=== PATIENT | female | born 1950 | race Caucasian/White ===

== ENCOUNTER 2017-02-27 11:15 | Emergency (ER) | payer MEDICARE, OTHER ==
[2017-02-27 11:30] VITALS: BP 148/59
--- NOTE | 2017-02-27 11:38 | EDM.PDOC ---
ED HPI Trauma - General Chief Complaint: Upper Extremity Injury/Pain Stated Complaint: RIGHT ARM PAIN Time Seen by Provider: 02/27/17 11:38 - History of Present Illness INITIAL COMMENTS - FREE TEXT/NARRATIVE: 67-year-old female presents emergency room with left arm pain. This pain has been present for about a week and a half possibly as long as 2 weeks. Patient cannot recall any specific injuries. She takes ibuprofen a couple times a week, she works part-time and on her workdays she uses it this may help with her arm pain. The pain is described as starting in her forearm and radiating up the inner aspect of her upper arm about fci up. It is not seem to be worsened by elbow activity or rolling her wrist. Patient does not have a history of heart problems and has not any associated chest pain with this Allergies/ADRs: Allergies bacitracin [From Neosporin ([id number])] Allergy (Verified 02/27/17 11:31) Hives neomycin [From Neosporin ([id number])] Allergy (Verified 02/27/17 11:31) Hives nickel Allergy (Verified 02/27/17 11:31) Rash Penicillins Allergy (Verified 02/27/17 11:31) Rash polymyxin B [From Neosporin ([id number])] Allergy (Verified 02/27/17 11:31) Hives Home Medications: Ambulatory Orders Aspirin 81 mg PO DAILY 02/27/17 [Confirmed 02/27/17] Escitalopram [Lexapro] 20 mg PO DAILY 02/27/17 [Confirmed 02/27/17] FA/Lycopene/Lut/MV,Ca,Iron,Min [Centrum] 1 tab PO DAILY 02/27/17 [Confirmed 06/08] Gemfibrozil [Gemfibrozil] 1 tab PO BID 02/27/17 [Confirmed 02/27/17] Ibuprofen 400 mg PO ASDIRECTED 02/27/17 [Confirmed 02/27/17] Metoprolol Succinate 25 mg PO DAILY 02/27/17 [Confirmed 02/27/17] Review of Systems - Review of Systems Review Of Systems: See Below Constitutional: Reports: no symptoms Respiratory: Reports: No Symptoms Cardiovascular: Reports: no symptoms GI/Abdominal: Reports: No symptoms Neurological: Reports: No Symptoms Trauma Exam - Physical Exam Exam: See Below Exam Limited By: No limitations General Appearance: Reports: alert, no apparent distress Head: Reports: atraumatic, normocephalic Neck: Reports: non-tender, full range of motion, normal alignment, normal inspection, spinous processes tender, other (she has some nonspecific muscle tightness on the left) Respiratory Exam: Reports: no respiratory distress, lungs clear, normal breath sounds Cardiovascular: Reports: regular rate, rhythm, no edema, no murmur Extremities: Reports: other (Demisch of left upper extremity shows good range of motion of the shoulder she has no discomfort over the deltoid bandage area she has some palpable discomfort in the lower ulnar aspect of the upper arm extending down towards her hand. No palpable discomfort over the ulnar nerve were courses over the elbow no tenderness over the lateral or medial epicondyles. Tinel sign is negative as is Phalen's and reverse Phalen's.) Course - Vital Signs Last Recorded V/S: Last Vital Signs Temp 36.5 C 02/27/17 11:22 Pulse 64 02/27/17 11:22 Resp 18 02/27/17 11:22 BP 148/59 H 02/27/17 11:22 Pulse Ox 96 02/27/17 11:22 - Orders/Labs/Meds Orders: Active Orders 24 hr Category Date Time Status EKG Documentation Completion [RC] STAT Care 02/27/17 12:41 Active - Re-Assessments/Exams Free Text/Narrative Re-Assessment/Exam: 02/27/17 because of this pain can be muscle to be other things as well but unlikely be cardiac her EKG shows no acute changes or any chronic suspicious changes. Further considerations need to be cervical radicular painand if continued workup for this is unrevealing perhaps a stress test may be of benefit. Discussed this with the patient offered to do lab work at this point, she declined this. However, is willing to followup in the clinic. We will try her on ibuprofen 400 mg twice a day she usually uses 400 mg before she goes to work to help with her knee pain in seems to tolerate this. Departure - Departure Time of Disposition: 13:46 Disposition: Home, Self-Care 01 Clinical Impression: Left arm pain Referrals: Madonna Covington NP [Primary Care Provider] - Forms: ED Department Discharge Additional Instructions: Return to the emergency room if any questions or problems. Increase your ibuprofen to 400 mg twice daily. Take this with meals. Followup with your regular physician in several days. If the cause this discomfort cannot be fully identified consider a heart stress test. Causes of this pain most likely are muscle strains it is possible that he could be pain from your neck. But I think this is less likely. Your EKG is assuring, however, a heart stress test in the near future may be very beneficial. - My Orders Last 24 Hours: My Active Orders 02/27/17 12:41 EKG Documentation Completion [RC] STAT - Assessment/Plan Last 24 Hours: My Active Orders 02/27/17 12:41 EKG Documentation Completion [RC] STAT
== END 2017-02-27 13:55 | disposition home or self-care (01) ==
LOC: JD.ED 11:15
DX: M79.602 Pain in left arm (principal); Z79.899 Other long term (current) drug therapy; Z79.82 Long term (current) use of aspirin; Z88.0 Allergy status to penicillin; Z88.1 Allergy status to other antibiotic agents
CPT/HCPCS: 93005; 99283; 99283-25

== ENCOUNTER 2018-01-20 17:12 | Emergency (ER) | payer MEDICARE, OTHER ==
[2018-01-20 17:28] VITALS: BP 145/56
--- NOTE | 2018-01-20 18:49 | EDM.PDOC ---
ED HPI GENERAL MEDICAL PROBLEM - General Chief Complaint: Skin Complaint Stated Complaint: SKIN COMPLAINT/BOTH HANDS Time Seen by Provider: 01/20/18 18:24 Source of Information: Reports: Patient History Limitations: Reports: No Limitations - History of Present Illness INITIAL COMMENTS - FREE TEXT/NARRATIVE: Patient is a 67-year-old female with a history of eczema who presents ED complaining of worsening of rash to the palms of her hands, fingers, and wrist. States she's been applying Benadryl lotion, hydrocortisone 1% lotion, and bacitracin to the affected areas. Symptoms have become mildly worse with application of bacitracin. She does have a history of allergies to Neosporin and questions if the worsening of the symptoms is not related to the bacitracin. She states the rash is itchy and she has been itching it quite excessively today. She has a history of similar symptoms as such for the past few months. She has a history of eczema and notes other parts of her body have at times developed similar rash. She was on prednisone for 5 days approx. 2 weeks ago with almost complete resolution of the rash. She does admit to washing her hands without any rubber gloves. She uses scented antibacterial foam soaps which appear to be worsening symptoms. She has at times also use scented lotions. She has taken Zyrtec on a daily basis. There's been no increased redness, purulent drainage, increased swelling, or redness streaking up her arms. Bilateral Hand Pain Score (Numeric/FACES): 6 - Related Data Allergies Allergy/AdvReac Type Severity Reaction Status Date / Time bacitracin Allergy Hives Verified 01/20/18 18:50 [From Neosporin ([id number])] neomycin Allergy Hives Verified 01/20/18 18:50 [From Neosporin ([id number])] nickel Allergy Rash Verified 01/20/18 18:50 Penicillins Allergy Rash Verified 01/20/18 18:50 polymyxin B Allergy Hives Verified 01/20/18 18:50 [From Neosporin ([id number])] Home Meds: Home Meds Aspirin 81 mg PO DAILY 02/27/17 [History] Escitalopram [Lexapro] 20 mg PO DAILY 02/27/17 [History] FA/Lycopene/Lut/MV,Ca,Iron,Min [Centrum] 1 tab PO DAILY 02/27/17 [History] Ibuprofen 400 mg PO ASDIRECTED 02/27/17 [History] Metoprolol Succinate 25 mg PO DAILY 02/27/17 [History] Cyanocobalamin (Vitamin B12) [Vitamin B12] 1,000 mcg PO DAILY 01/20/18 [History] Past Medical History HEENT History: Reports: Impaired Vision Cardiovascular History: Reports: High Cholesterol, Hypertension Gastrointestinal History: Reports: Other (See Below) Other Gastrointestinal History: increased gas Genitourinary History: Reports: UTI, Recurrent Musculoskeletal History: Reports: Arthritis, Other (See Below) Other Musculoskeletal History: knee pain Psychiatric History: Reports: Anxiety, Depression Endocrine/Metabolic History: Reports: Hypothyroidism Other Endocrine/Metabolic History: not on synthroid anymore Hematologic History: Reports: Other (See Below) Other Hematologic History: is on baby aspirin Dermatologic History: Reports: Eczema - Past Surgical History HEENT Surgical History: Reports: Tonsillectomy GI Surgical History: Reports: Appendectomy, Colonoscopy Female Surgical History: Reports: Hysterectomy Social & Family History - Family History Family Medical History: Noncontributory - Tobacco Use Smoking Status *Q: Former Smoker Used Tobacco, but Quit: Yes Month/Year Tobacco Last Used: 1991 - Caffeine Use Caffeine Use: Reports: Coffee, Soda - Recreational Drug Use Recreational Drug Use: No ED ROS GENERAL - Review of Systems Review Of Systems: ROS reveals no pertinent complaints other than HPI. ED EXAM, SKIN/RASH Exam: See Below Exam Limited By: No Limitations General Appearance: Alert, WD/WN, No Apparent Distress Ears: Hearing Grossly Normal Nose: Normal Inspection Throat/Mouth: Normal Voice, No Airway Compromise Neck: Normal Inspection, Supple Respiratory/Chest: No Respiratory Distress, No Accessory Muscle Use Cardiovascular: Normal Peripheral Pulses, Regular Rate, Rhythm Peripheral Pulses: 4+: Radial (L), Radial (R) Psychiatric: Normal Affect, Normal Mood Skin: Warm Location, Skin: Palms Characteristics: Patchy, Erythematous, Other (Patient has atopic dermatitis of the left and right palms, and wrists, and few fingers on the palmar side. Patient has some cracking noted. Dry skin present with excoriations noted. Clear drainage noted. No increased swelling. Appears to be atopic dermatitis. ) Comments: Patient has atopic dermatitis of the left and right palms, and wrists, and few fingers on the palmar side. Patient has some cracking noted. Dry skin present with excoriations noted. Clear drainage noted. No increased swelling. Appears to be atopic dermatitis. Course - Vital Signs Last Recorded V/S: Last Vital Signs Temp 97.2 F 01/20/18 17:25 Pulse 64 01/20/18 17:25 Resp 20 01/20/18 17:25 BP 145/56 H 01/20/18 17:25 Pulse Ox 97 01/20/18 17:25 - Re-Assessments/Exams Free Text/Narrative Re-Assessment/Exam: Patient has atopic dermatitis that was relieved with taking oral prednisone. She has been applying Benadryl lotion, hydrocortisone 1% lotion, and bacitracin to the affected areas with minimal relief. Patient started itching the affected extremities extensively over the past few days. Of note approximately 2 weeks ago patient was placed on oral prednisone and almost completely resolve the rash. Departure - Departure Time of Disposition: 18:57 Disposition: Home, Self-Care 01 Condition: Good Clinical Impression: Atopic dermatitis Qualifiers: Atopic dermatitis type: unspecified Qualified Code(s): L20.9 - Atopic dermatitis, unspecified - Discharge Information Instructions: Eczema, Hand Dermatitis Referrals: Madonna Covington NP [Primary Care Provider] - Forms: ED Department Discharge Additional Instructions: Apply hydrocortisone ointment 1% to the affected areas twice a day with heavy coat of aquaphor. Do not scratch the rash. Keep area clean and dry. Do not utilize any antibacterial foam soaps. Refrain from using any scented soaps. Refrain from using any lotions. Follow-up with your primary care provider this coming week for reevaluation. Return to the ED if you develop any new or worsening symptoms.
== END 2018-01-20 19:10 | disposition home or self-care (01) ==
LOC: JD.ED 17:12
DX: L20.9 Atopic dermatitis, unspecified (principal); E78.00 Pure hypercholesterolemia, unspecified; I10 Essential (primary) hypertension; F41.9 Anxiety disorder, unspecified; F32.9 Major depressive disorder, single episode, unspecified; E03.9 Hypothyroidism, unspecified; Z90.49 Acquired absence of other specified parts of digestive tract; Z88.1 Allergy status to other antibiotic agents; Z88.8 Allergy status to other drugs, medicaments and biological substances; Z88.0 Allergy status to penicillin; Z87.440 Personal history of urinary (tract) infections; Z79.82 Long term (current) use of aspirin; Z79.899 Other long term (current) drug therapy; Z87.891 Personal history of nicotine dependence
CPT/HCPCS: 99282; 99283

== ENCOUNTER 2018-01-27 17:19 | Emergency (ER) | payer MEDICARE, OTHER ==
[2018-01-27 17:32] VITALS: BP 148/64
[2018-01-27] MEDS ORDERED: Doxycycline 100 MG Cap PO ONE (17:51)
[2018-01-27] MEDS ORDERED: predniSONE 10 MG Tab PO ONE (17:51)
--- NOTE | 2018-01-27 17:55 | EDM.PDOC ---
ED HPI GENERAL MEDICAL PROBLEM - General Chief Complaint: Skin Complaint Stated Complaint: poss wrist infection Time Seen by Provider: 01/27/18 17:29 Source of Information: Reports: Patient History Limitations: Reports: No Limitations - History of Present Illness INITIAL COMMENTS - FREE TEXT/NARRATIVE: The patient is a 68-year-old female with a chief complaint of right wrist pain and redness. She is currently under treatment for severe bilateral hand dermatitis. Was seen in this emergency department about a week ago and at that time advised to use hydrocortisone and Aquaphor. Since then she states that the dermatitis has improved significantly. She does still have a lot of and irritation and cracking. Meanwhile, she has an area of irritation on her right wrist that is more red, warm, and tender today. She was worried because the area of redness appeared to be spreading. No fever. Moderate pain. No additional complaint. No discharge from the area. Right Hand Pain Score (Numeric/FACES): 4 - Related Data Allergies Allergy/AdvReac Type Severity Reaction Status Date / Time bacitracin Allergy Hives Verified 01/27/18 17:33 [From Neosporin ([id number])] neomycin Allergy Hives Verified 01/27/18 17:33 [From Neosporin ([id number])] nickel Allergy Rash Verified 01/27/18 17:33 Penicillins Allergy Rash Verified 01/27/18 17:33 polymyxin B Allergy Hives Verified 01/27/18 17:33 [From Neosporin ([id number])] Home Meds: Home Meds Aspirin 81 mg PO DAILY 02/27/17 [History] Escitalopram [Lexapro] 20 mg PO DAILY 02/27/17 [History] FA/Lycopene/Lut/MV,Ca,Iron,Min [Centrum] 1 tab PO DAILY 02/27/17 [History] Ibuprofen 400 mg PO ASDIRECTED 02/27/17 [History] Metoprolol Succinate 25 mg PO DAILY 02/27/17 [History] Cyanocobalamin (Vitamin B12) [Vitamin B12] 1,000 mcg PO DAILY 01/20/18 [History] Doxycycline [Vibramycin] 100 mg PO BID #20 tab 01/27/18 [Rx] Prednisone [IJD: predniSONE] 40 mg PO DAILY 4 Days #8 tab 01/27/18 [Rx] Past Medical History HEENT History: Reports: Impaired Vision Cardiovascular History: Reports: High Cholesterol, Hypertension Gastrointestinal History: Reports: Other (See Below) Other Gastrointestinal History: increased gas Genitourinary History: Reports: UTI, Recurrent Musculoskeletal History: Reports: Arthritis, Other (See Below) Other Musculoskeletal History: knee pain Psychiatric History: Reports: Anxiety, Depression Endocrine/Metabolic History: Reports: Hypothyroidism Other Endocrine/Metabolic History: not on synthroid anymore Hematologic History: Reports: Other (See Below) Other Hematologic History: is on baby aspirin Dermatologic History: Reports: Eczema - Past Surgical History HEENT Surgical History: Reports: Tonsillectomy GI Surgical History: Reports: Appendectomy, Colonoscopy Female Surgical History: Reports: Hysterectomy Social & Family History - Family History Family Medical History: Noncontributory - Tobacco Use Smoking Status *Q: Former Smoker Used Tobacco, but Quit: Yes Month/Year Tobacco Last Used: 1991 - Caffeine Use Caffeine Use: Reports: Coffee, Soda - Recreational Drug Use Recreational Drug Use: No ED ROS GENERAL - Review of Systems Review Of Systems: See Below Constitutional: Denies: Fever HEENT: Reports: No Symptoms Respiratory: Reports: No Symptoms Cardiovascular: Reports: No Symptoms GI/Abdominal: Reports: No Symptoms Musculoskeletal: Reports: Arm Pain, Hand Pain Skin: Reports: Rash, Erythema ED EXAM, SKIN/RASH Exam: See Below Exam Limited By: No Limitations General Appearance: Alert, WD/WN, No Apparent Distress Eye Exam: Bilateral Eye: Normal Inspection Ears: Normal External Exam Nose: Normal Inspection Throat/Mouth: Normal Inspection, Normal Voice Head: Atraumatic, Normocephalic Neck: Normal Inspection Respiratory/Chest: No Respiratory Distress Extremities: Other (Bilateral hands are irritated and cracked in areas, both palmar and dorsal surfaces. Irritation and rash extends to the bilateral wrists. Right wrist palmar surface has a confluent area of erythema, warmth, tenderness. No fluctuance. No wound. There is slight streaking proximally.) Neurological: Alert, Oriented, Normal Cognition, No Motor/Sensory Deficits Psychiatric: Normal Affect, Normal Mood Course - Vital Signs Last Recorded V/S: Last Vital Signs Temp 37.4 C 01/27/18 17:29 Pulse 68 01/27/18 17:29 Resp 16 01/27/18 17:29 BP 148/64 H 01/27/18 17:29 Pulse Ox 97 01/27/18 17:29 - Orders/Labs/Meds Meds: Medications Discontinued Medications Generic Name Dose Route Start Last Admin Trade Name Casi PRN Reason Stop Dose Admin Doxycycline Hyclate 100 mg 01/27/18 17:51 01/27/18 18:05 Vibramycin PO 01/27/18 17:52 100 mg ONETIME ONE Administration Prednisone 60 mg 01/27/18 17:51 01/27/18 18:05 Prednisone PO 01/27/18 17:52 60 mg ONETIME ONE Administration - Re-Assessments/Exams Free Text/Narrative Re-Assessment/Exam: 01/27/18 18:20 Exam is consistent with moderate bilateral hand dermatitis with superimposed cellulitis of the right wrist. The area of cellulitis is mild. We'll treat with doxycycline. Discussed strict return precautions. Departure - Departure Time of Disposition: 18:20 Disposition: Home, Self-Care 01 Clinical Impression: Dermatitis Cellulitis Qualifiers: Site of cellulitis: extremity Site of cellulitis of extremity: upper extremity Laterality: right Qualified Code(s): L03.113 - Cellulitis of right upper limb - Discharge Information Prescriptions: Doxycycline [Vibramycin] 100 mg PO BID #20 tab Prednisone [IJD: predniSONE] 40 mg PO DAILY 4 Days #8 tab Instructions: Cellulitis, Adult, Contact Dermatitis Referrals: Madonna Covington NP [Primary Care Provider] - Forms: ED Department Discharge
== END 2018-01-27 18:33 | disposition home or self-care (01) ==
LOC: JD.ED 17:19
DX: L03.113 Cellulitis of right upper limb (principal); L30.9 Dermatitis, unspecified; E78.00 Pure hypercholesterolemia, unspecified; I10 Essential (primary) hypertension; Z88.8 Allergy status to other drugs, medicaments and biological substances; Z88.0 Allergy status to penicillin; Z79.82 Long term (current) use of aspirin; Z79.899 Other long term (current) drug therapy; Z87.891 Personal history of nicotine dependence
CPT/HCPCS: 99283; A9270

== ENCOUNTER 2018-11-26 12:30 | Emergency (ER) | payer MEDICARE, OTHER ==
[2018-11-26 12:49] VITALS: BP 159/77
[2018-11-26] MEDS ORDERED: Diphtheria,Pertussis(Acell),Tetanus Vaccine 0.5 ML Syringe IM ONE (13:13)
[2018-11-26] MEDS ORDERED: Lidocaine 1% with EPINEPHrine 1:100,000 20 ML MDV INJECT ONE (13:41)
--- NOTE | 2018-11-26 14:07 | EDM.PDOC ---
ED HPI GENERAL MEDICAL PROBLEM - General Chief Complaint: Head Injury Stated Complaint: HEAD INJURY Time Seen by Provider: 11/26/18 13:02 Source of Information: Reports: Patient History Limitations: Reports: No Limitations - History of Present Illness INITIAL COMMENTS - FREE TEXT/NARRATIVE: Patient is a 68-year-old female who presents ED complaining of mild headache to the posterior aspect of her head with a 8 cm lacerationthat occurred this morning. Patient states she was stepping onto a countertop in the bathroom and was reaching up to grab the cabinet to pull herself up to check for a mouse. With doing so the cabinet edge gaveway and she fell backwards hitting her head on the corner of the door. There was no loss of conscious. She denies any neck or back pain. Bleeding was controlled with direct pressure. She was seen at the clinic and instructed to come to the ED for further evaluation. She is on a baby aspirin daily. No anticoagulants. She has full range of motion of her neck. Denies any vision changes, nausea vomiting, chest pain, shortness of breath, abdominal pain, numbness or tingling to extremities, or any additional complaints. Patient ambulated into the emergency room on her own accord. Occipital Head Pain Score (Numeric/FACES): 4 - Related Data Allergies Allergy/AdvReac Type Severity Reaction Status Date / Time bacitracin Allergy Hives Verified 11/26/18 12:49 [From Neosporin ([id number])] gold Au 198 Allergy Other Verified 11/26/18 12:49 neomycin Allergy Hives Verified 11/26/18 12:49 [From Neosporin ([id number])] nickel Allergy Rash Verified 11/26/18 12:49 Penicillins Allergy Rash Verified 11/26/18 12:49 polymyxin B Allergy Hives Verified 11/26/18 12:49 [From Neosporin ([id number])] rubber Allergy Other Uncoded 11/26/18 12:49 Home Meds: Home Meds Aspirin 81 mg PO DAILY 02/27/17 [History] Escitalopram [Lexapro] 20 mg PO DAILY 02/27/17 [History] FA/Lycopene/Lut/MV,Ca,Iron,Min [Centrum] 1 tab PO DAILY 02/27/17 [History] Ibuprofen 400 mg PO ASDIRECTED 02/27/17 [History] Metoprolol Succinate 25 mg PO DAILY 02/27/17 [History] Cyanocobalamin (Vitamin B12) [Vitamin B12] 1,000 mcg PO DAILY 01/20/18 [History] Past Medical History HEENT History: Reports: Impaired Vision Cardiovascular History: Reports: High Cholesterol, Hypertension Gastrointestinal History: Reports: Other (See Below) Other Gastrointestinal History: increased gas Genitourinary History: Reports: UTI, Recurrent Musculoskeletal History: Reports: Arthritis, Other (See Below) Other Musculoskeletal History: knee pain Psychiatric History: Reports: Anxiety, Depression Endocrine/Metabolic History: Reports: Hypothyroidism Other Endocrine/Metabolic History: not on synthroid anymore Hematologic History: Reports: Other (See Below) Other Hematologic History: is on baby aspirin Dermatologic History: Reports: Eczema - Past Surgical History HEENT Surgical History: Reports: Tonsillectomy GI Surgical History: Reports: Appendectomy, Colonoscopy Female Surgical History: Reports: Hysterectomy Social & Family History - Family History Family Medical History: Noncontributory - Caffeine Use Caffeine Use: Reports: Coffee, Soda ED ROS GENERAL - Review of Systems Review Of Systems: ROS reveals no pertinent complaints other than HPI. ED EXAM, HEAD INJURY - Physical Exam Exam: See Below Exam Limited By: No Limitations General Appearance: Alert, WD/WN, No Apparent Distress Head: Scalp Lacerations (8 cm to the posterior aspect of the head. Dry blood present. No foreign debris noted. No bony abnormalities noted with palpation. No significant hematoma present.) Nexus Criteria: No: Posterior, Midline Cervical Tenderness, Evidence of Intoxication, Altered Level of Consciousness, Focal Neurological Deficit, Painful Distraction Injuries Eyes: Bilateral Eye: EOMI, Nystagmus (none noted), PERRL Ears: Hearing Grossly Normal Nose: Normal Inspection Throat/Mouth: Normal Voice, No Airway Compromise Neck: Non-Tender, Full Range of Motion, Normal Alignment, Normal Inspection Respiratory: No Respiratory Distress, Lungs Clear, Normal Breath Sounds, No Accessory Muscle Use, Chest Non-Tender Cardiovascular: Normal Peripheral Pulses, Regular Rate, Rhythm GI/Abdominal Exam: Normal Bowel Sounds, Soft, Non-Tender, No Organomegaly, No Distention Back Exam: Normal Inspection, Full Range of Motion. No: Paraspinal Tenderness, Vertebral Tenderness Extremities: Normal Inspection, Non-Tender Neurologic: health therapist II-XII nml As Tested, No Motor/Sensory Deficits, Normal Mood/ Affect, Oriented x 3. No: Abnormal Gait Skin: Normal Color, Warm/Dry ED LACERATION/WOUND & SULLY PROC - Laceration/Wound Repair Posterior Head Lac/wound length in cm: 8 Appearance: Subcutaneous, Clean Distal NVT: Neuro & Vascular Intact, No Tendon Injury Anesthetic Type: Local Local Anesthesia - Lidocaine (Xylocaine): 1% with EPI Local Anesthetic Volume: Other (8) Skin Prep: Chlorhexidine (Hibiciens), Saline, Sterile Drape Exploration/Debridement/Repair: Wound Explored, In a Bloodless Field, Explored to Base, No Foreign Material Found Closed with: [place] # of Sutures: 20 Course - Vital Signs Last Recorded V/S: Last Vital Signs Temp 97.0 F 11/26/18 12:43 Pulse 55 L 11/26/18 12:43 Resp 18 11/26/18 12:43 BP 159/77 H 11/26/18 12:43 Pulse Ox 95 11/26/18 12:43 - Orders/Labs/Meds Orders: Active Orders 24 hr Category Date Time Status Vaccines to be Administered [RC] PER UNIT ROUTINE Care 11/26/18 13:13 Active Head wo Cont [CT] Stat Exams 11/26/18 13:13 Taken Meds: Medications Discontinued Medications Generic Name Dose Route Start Last Admin Trade Name Freq PRN Reason Stop Dose Admin Diphtheria/Tetanus/Acell Pertussis 0.5 ml 11/26/18 13:13 11/26/18 13:33 Adacel IM 11/26/18 13:14 0.5 ml .ONCE ONE Administration Lidocaine/Epinephrine 20 ml 11/26/18 13:41 11/26/18 14:16 Xylocaine 1% With Epinephrine 1:100,000 INJECT 11/26/18 13:42 20 ml ONETIME ONE Administration - Re-Assessments/Exams Free Text/Narrative Re-Assessment/Exam: CT of the head without contrast will be obtained. I have ordered 1% epi with lidocaine. Patient is allergic to multiple times to metals. Stainless steel is not one of them.Thus we'll go ahead and staple the laceration once results of the head CT are back. CT of the head impression: No hemorrhage, mass effect, or midline shift. No evidence of acute intracranial abnormality. Laceration closed with no complications. Return precautions discussed with the patient.Patient had no further questions or concerns and agreed with plan. Discharge instructions as documented. Departure - Departure Time of Disposition: 14:08 Disposition: Home, Self-Care 01 Condition: Good Clinical Impression: Contusion of head Qualifiers: Encounter type: initial encounter Contusion of head detail: scalp Qualified Code(s): S00.03XA - Contusion of scalp, initial encounter Laceration of scalp Qualifiers: Encounter type: initial encounter Qualified Code(s): S01.01XA - Laceration without foreign body of scalp, initial encounter - Discharge Information Instructions: Concussion, Adult, [id number], Laceration Care, Adult, Contusion, [id number], Head Injury, Adult, [id number], Stitches, Meron, or Adhesive Wound Closure, [id number] Referrals: PCP,Unknown [Primary Care Provider] - Forms: ED Department Discharge Additional Instructions: Cleanse site twice daily, PAT dry, reapply bacitracin ointment. Keep area clean and dry. Do not soak wound. Followup with a provider at [facility] in 10 days for staple removal free of charge. Return back to the ED for increased redness, increased swelling, or purulent drainage. Please read the educational material on concussions and postconcussion syndrome. I do not believe you have a concussion but due believe you should be aware of potential symptoms to look out for. - My Orders Last 24 Hours: My Active Orders 11/26/18 13:13 Vaccines to be Administered [RC] PER UNIT ROUTINE Head wo Cont [CT] Stat - Assessment/Plan Last 24 Hours: My Active Orders 11/26/18 13:13 Vaccines to be Administered [RC] PER UNIT ROUTINE Head wo Cont [CT] Stat
--- NOTE | 2018-11-27 08:46 | CT ---
Head CT Technique: Multiple axial sections through the brain were obtained. Intravenous contrast was not utilized. Comparison: No prior intracranial imaging is available. Findings: Ventricles along with basal cisterns and sulci over the convexities are mildly prominent. Minimal diminished density is noted within the periventricular white matter compatible with small vessel ischemic demyelination change. No other abnormal parenchymal densities are seen. No evidence of intracranial hemorrhage. No midline shift or mass effect is seen. Soft tissue swelling and soft tissue injury seen within the posterior scalp. Bone window settings were reviewed which show no acute calvarial abnormality. Visualized sinuses are clear. Impression: 1. Mild senescent change. 2. Scalp findings posteriorly as noted above. 3. No acute intracranial abnormality is identified. Diagnostic code #2 I agree with preliminary report from [facility], finalized on 11/26/18, 2:58 PM Central Time
== END 2018-11-26 15:05 | disposition home or self-care (01) ==
LOC: JD.ED 12:30
DX: S01.01XA Laceration without foreign body of scalp, initial encounter (principal); Z88.8 Allergy status to other drugs, medicaments and biological substances; Z79.82 Long term (current) use of aspirin; Z79.899 Other long term (current) drug therapy; Z91.048 Other nonmedicinal substance allergy status; F41.9 Anxiety disorder, unspecified; F32.9 Major depressive disorder, single episode, unspecified; W01.10XA Fall on same level from slipping, tripping and stumbling with subsequent striking against unspecified object, initial encounter; Z23 Encounter for immunization
CPT/HCPCS: 12004; 70450; 70450-26; 90471; 90700; 99283; 99283-25

== ENCOUNTER 2020-09-07 09:30 | Day surgery (SDC) | payer MEDICARE, OTHER ==
[~2020-09-07 09:30] MED LIST: Acetaminophen 325 MG Tab PO SCH; Lactated Ringers 1,000 ML IV SCH; Lidocaine 1%/Sod Bicarbonate in NS 8.4% 1 ML Syringe IDERM PRN; Pregabalin 25 MG Cap PO SCH; Sodium Chloride 0.9% 10 ML Syringe FLUSH PRN; oxyCODONE ER 10 MG TAB.ER PO SCH
[2020-09-07] MEDS ORDERED: Propofol 200 MG/20 ML SDV ONE (10:04)
[2020-09-07] MEDS ORDERED: Ketamine 500 mg/10 ML MDV ONE (10:05)
[2020-09-07] MEDS ORDERED: ceFAZolin 1 GM Vial ONE (10:05)
[2020-09-07] MEDS ORDERED: Midazolam 1 MG/ML 2 ML SDV ONE (10:05)
[2020-09-07] MEDS ORDERED: Ketorolac 15 MG/ML SDV ONE (10:09)
[2020-09-07] MEDS ORDERED: Ondansetron 4 MG/2 ML SDV ONE (10:09)
[2020-09-07] MEDS ORDERED: Dexamethasone 4 MG/ML 5 ML MDV ONE (10:09)
[2020-09-07] MEDS ORDERED: Ropivacaine 0.5% 5 MG/ML 30 ML SDV ONE (10:36)
[2020-09-07] MEDS ORDERED: EPINEPHrine 1 MG/ML SDV ONE (10:36)
[2020-09-07] MEDS ORDERED: ePHEDrine 50 MG/ML SDV ONE (11:03)
[2020-09-07] MEDS ORDERED: Lactated Ringers 1,000 ML ONE (11:19)
[2020-09-07] MEDS: Bupivacaine 0.25% 10 ML SDV ONE ×2 (11:51→11:54)
[2020-09-07] MEDS: Vancomycin 1 GM SDV ONE ×2 (11:51→12:07)
--- NOTE | 2020-09-07 11:51 | PCM.PREANE ---
Preanesthetic Assessment - Procedure Proposed Procedure: Right Total Knee Arthroplasty - Anesthesia/Transfusion/Family Hx Anesthesia History: Prior Anesthesia Without Reaction Family History of Anesthesia Reaction: No - Review of Systems General: No Symptoms Pulmonary: Cough (Dry, Former smoker, always had this cought. ), Other (Sleep Apnea with CPAP use. ) Cardiovascular: No Symptoms Gastrointestinal: No Symptoms Neurological: Pre-Existing Deficit (Neuropathy left hand and left foot. ) Other: Reports: None - Physical Assessment NPO Status Date: 09/06/20 NPO Status Time: 23:30 Vital Signs: Last Vital Signs Temp 36.4 C 09/07/20 09:35 Pulse 60 09/07/20 09:35 Resp 16 09/07/20 09:35 BP 128/48 L 09/07/20 09:35 Pulse Ox 97 09/07/20 09:35 Height: 1.65 m Weight: 97.522 kg ASA Class: 3 Mental Status: Alert & Oriented x3 Airway Class: Mallampati = 2 Dentition: Reports: Dentures (upper), Partial (lower) Thyro-Mental Finger Breadths: 2 Mouth Opening Finger Breadths: 3 ROM/Head Extension: Full Lungs: Clear to Auscultation, Normal Respiratory Effort Cardiovascular: Regular Rate, Regular Rhythm - Lab Values: Laboratory Last Values MRSA (PCR) Negative 08/25/20 13:00 - Allergies Allergies/Adverse Reactions: Allergies Allergy/AdvReac Type Severity Reaction Status Date / Time bacitracin Allergy Hives Verified 09/04/20 09:55 [From Neosporin ([id number])] gold Au 198 Allergy Other Verified 09/04/20 09:55 neomycin Allergy Hives Verified 09/04/20 09:55 [From Neosporin ([id number])] nickel Allergy Rash Verified 09/04/20 09:55 Penicillins Allergy Rash Verified 09/07/20 11:22 polymyxin B Allergy Hives Verified 09/04/20 09:55 [From Neosporin ([id number])] rubber Allergy Other Uncoded 09/04/20 09:55 - Anesthesia Plan Pre-Op Medication Ordered: Anxiolytic Beta Kingsley: Metoprolol Med Last Dose Date: 09/07/20 Med Last Dose Time: 07:00 - Acknowledgements Anesthesia Type Planned: Spinal, Regional Block (Post op adductor canal block for post op pain control. ) Pt an Appropriate Candidate for the Planned Anesthesia: Yes Alternatives and Risks of Anesthesia Discussed w Pt/Guardian: Yes Pt/Guardian Understands and Agrees with Anesthesia Plan: Yes PreAnesthesia Questionnaire HEENT History: Reports: Impaired Vision Other HEENT History: Dentures Cardiovascular History: Reports: High Cholesterol, Hypertension Other Cardiovascular History: Patient states she has episodes of "heart racing with skipping beats" -- Last episode unknown. 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: Other (See Below) Other OB/BYN History: tubal, D&C, hysterectomy Musculoskeletal History: Reports: Arthritis, Other (See Below) Other Musculoskeletal History: left hand numbness, left foot numbness Psychiatric History: Reports: Anxiety, Depression Endocrine/Metabolic History: Reports: Obesity/BMI 30+, Vitamin D Deficiency Other Endocrine/Metabolic History: not on synthroid anymore Hematologic History: Reports: Other (See Below) Other Hematologic History: is on baby aspirin Dermatologic History: Reports: Eczema - Infectious Disease History Infectious Disease History: Reports: Chicken Pox, Measles - Past Surgical History Head Surgeries/Procedures: Reports: None Cardiovascular Surgical History: Reports: None Respiratory Surgical History: Reports: None GI Surgical History: Reports: Colonoscopy Female Surgical History: Reports: None Endocrine Surgical History: Reports: None Neurological Surgical History: Reports: None Musculoskeletal Surgical History: Other Musculoskeletal Surgeries/Procedures:: bunion excision bilateral feet, right hand surgery Dermatological Surgical History: Reports: None - SUBSTANCE USE Tobacco Use Status *Q: Former Tobacco User Recreational Drug Use History: No - HOME MEDS Home Medications: Home Meds Escitalopram [Lexapro] 20 mg PO DAILY 02/27/17 [History] FA/Lycopene/Lut/MV,Ca,Iron,Min [Centrum] 1 tab PO DAILY 02/27/17 [History] Metoprolol Succinate 25 mg PO DAILY 02/27/17 [History] Cyanocobalamin (Vitamin B12) [Vitamin B12] 1,000 mcg PO DAILY 01/20/18 [History] Cholecalciferol (Vitamin D3) [Vitamin D3] 5,000 unit PO DAILY 09/04/20 [History] atorvaSTATin Calcium [Lipitor] 20 mg PO DAILY 09/04/20 [History] valACYclovir [Valtrex] 1,000 mg PO BID PRN 09/04/20 [History] Aspirin [Aspirin EC] 325 mg PO BID #84 tab 09/07/20 [Rx] Cyclobenzaprine [Flexeril] 5 mg PO BID PRN #10 tab 09/07/20 [Rx] oxyCODONE 5 - 10 mg PO Q4H PRN #40 tab 09/07/20 [Rx] - CURRENT (IN HOUSE) MEDS Current Meds: Current Medications Acetaminophen (Tylenol) 975 mg PO ONETIME SHARIF Stop: 09/07/20 16:00 Last Admin: 09/07/20 09:49 Dose: 975 mg Documented by: Morphine Sulfate 8 mg/Epinephrine HCl 0.3 mg/Cefuroxime Sodium 750 mg/Ketorolac Tromethamine 30 mg/Sodium Chloride 7.9 ml 0 mg .XX ONETIME SHARIF Stop: 09/07/20 16:00 Lactated Ringer's (Ringers, Lactated) 1,000 mls @ 125 mls/hr IV ASDIRECTED SHARIF Stop: 09/07/20 23:00 Last Admin: 09/07/20 10:05 Dose: 125 mls/hr Documented by: Lidocaine/Sodium Bicarbonate (Buffered Lidocaine 1% In Ns 8.4%) 0.25 ml IDERM ONETIME PRN PRN Reason: Prior to IV Start Stop: 09/07/20 18:00 Last Admin: 09/07/20 10:05 Dose: 0.25 ml Documented by: Oxycodone HCl (Oxycontin) 10 mg PO ONETIME SHARIF Stop: 09/07/20 18:00 Last Admin: 09/07/20 09:49 Dose: 10 mg Documented by: Pregabalin (Lyrica) 50 mg PO ONETIME SHARIF Stop: 09/07/20 18:00 Last Admin: 09/07/20 09:49 Dose: 50 mg Documented by: Sodium Chloride (Saline Flush) 10 ml FLUSH ASDIRECTED PRN PRN Reason: Keep Vein Open Stop: 09/07/20 18:00 Discontinued Medications Bupivacaine HCl (Sensorcaine-Mpf 0.25%) Confirm Administered Dose 30 ml .ROUTE . STK-MED ONE Stop: 09/07/20 09:45 Cefazolin Sodium (Ancef) Confirm Administered Dose 2 gm .ROUTE .STK-MED ONE Stop: 09/07/20 10:06 Dexamethasone (Dexamethasone) Confirm Administered Dose 20 mg .ROUTE .STK-MED ONE Stop: 09/07/20 10:10 Ephedrine Sulfate (Ephedrine Sulfate) Confirm Administered Dose 50 mg .ROUTE .STK-MED ONE Stop: 09/07/20 11:04 Epinephrine HCl (Adrenalin) Confirm Administered Dose 1 mg .ROUTE .STK-MED ONE Stop: 09/07/20 10:37 Lactated Ringer's (Ringers, Lactated) Confirm Administered Dose 1,000 mls @ as directed .ROUTE .STK-MED ONE Stop: 09/07/20 11:20 Ketamine HCl (Ketalar) Confirm Administered Dose 500 mg .ROUTE .STK-MED ONE Stop: 09/07/20 10:06 Ketorolac Tromethamine (Toradol) Confirm Administered Dose 15 mg .ROUTE .STK-MED ONE Stop: 09/07/20 10:10 Midazolam HCl (Versed 1 Mg/Ml) Confirm Administered Dose 2 mg .ROUTE .STK-MED ONE Stop: 09/07/20 10:06 Ondansetron HCl (Zofran) Confirm Administered Dose 4 mg .ROUTE .STK-MED ONE Stop: 09/07/20 10:10 Propofol (Diprivan 20 Ml) Confirm Administered Dose 600 mg .ROUTE .STK-MED ONE Stop: 09/07/20 10:05 Ropivacaine (Naropin 0.5%) Confirm Administered Dose 30 ml .ROUTE .STK-MED ONE Stop: 09/07/20 10:37 Tranexamic Acid (Cyklokapron) Confirm Administered Dose 1,000 mg .ROUTE .STK-MED ONE Stop: 09/07/20 09:45 Vancomycin HCl (Vancomycin) Confirm Administered Dose 1 gm .ROUTE .STK-MED ONE Stop: 09/07/20 09:45
[2020-09-07] MEDS ORDERED: HYDROmorphone 0.5 MG/0.5 ML Syringe IVPUSH PRN (11:52)
[2020-09-07] MEDS ORDERED: fentaNYL 100 MCG/2 ML SDV IVPUSH PRN (11:52)
[2020-09-07] MEDS: Morphine 8 MG, EPINEPHrine 0.3 MG, Cefuroxime 750 MG, Ketorolac 30 MG, Sodium Chloride ... SCH ×10 (11:53→11:55)
--- NOTE | 2020-09-07 12:38 | PCM.POSTAN ---
POST ANESTHESIA ASSESSMENT - MENTAL STATUS Mental Status: Alert, Oriented - VITAL SIGNS Vital Signs: Last Vital Signs Temp 36.4 C 09/07/20 09:35 Pulse 70 09/07/20 12:28 Resp 12 09/07/20 12:28 BP 112/47 L 09/07/20 12:28 Pulse Ox 93 L 09/07/20 12:28 - RESPIRATORY Respiratory Status: Respiratory Rate WNL, Airway Patent, O2 Saturation Stable, Supplemental Oxygen - CARDIOVASCULAR CV Status: Pulse Rate WNL, Blood Pressure Stable - GASTROINTESTINAL GI Status: No Symptoms - PAIN Pain Score: 0 - POST OP HYDRATION Hydration Status: Adequate & Stable
--- NOTE | 2020-09-07 13:01 | PCM.SN.2 ---
- Free Text/Narrative Note: Right selective femoral nerve block at the adductor canal for post-procedure pain control under US guidance requested by Dr. Aguilar. Date: 09/07/20 Time Out: 1242 Start: 1245 End: 1250 Chart reviewed. Consent signed. Questions answered. Appropriate monitors applied. Time out performed. Right mid-shaft femur identified with ultrasound, scanning medially of femur, the femoral artery in the adductor canal visualized, and the femoral nerve located laterally to the artery. The skin was prepped lateral to the ultrasound probe with chlorahexadine times two. The 21ga 4 insulated block needle was inserted under direct ultrasound guidance into the adductor canal. 25mL of 0.5% ropivacaine with 1:200,000 epinephrine was injected circumferentially around the nerve with intermittent negative aspiration noted. Patient tolerated the procedure well. Sterile technique noted along with sterile gloves, mask, and sterile probe cover. See picture on progress note and vital signs on nurses notes. Block completed in PACU. Nereida Davis CRNA
--- NOTE | 2020-09-07 14:18 | PCM48HPAN ---
Post Anesthesia Note - EVALUATION WITHIN 48HRS OF ANESTHETIC Vital Signs in Normal Range: Yes Patient Participated in Evaluation: Yes Respiratory Function Stable: Yes Airway Patent: Yes Cardiovascular Function Stable: Yes Hydration Status Stable: Yes Pain Control Satisfactory: Yes Nausea and Vomiting Control Satisfactory: Yes Mental Status Recovered: Yes Vital Signs: Last Vital Signs Temp 36.8 C 09/07/20 13:15 Pulse 76 09/07/20 13:30 Resp 16 09/07/20 13:30 BP 120/39 L 09/07/20 13:30 Pulse Ox 92 L 09/07/20 13:30
[2020-09-07] MEDS ORDERED: Albuterol 0.083% 2.5 MG/3 ML Neb Soln NEB SCH (15:16)
--- NOTE | 2020-09-07 15:28 | CR ---
PROCEDURE INFORMATION: Exam: XR Right Knee Exam date and time: 09/07/2020 12:40 PM Age: 70 years old Clinical indication: Screening exam; Post op; Prior surgery; Surgery date: Post- operative (0-2 days) TECHNIQUE: Imaging protocol: XR Right knee. Views: 1 or 2 views. COMPARISON: CR Bone Length Scanogram, Knee 3V Rt, Knee Standing AP Bi 05/06/2020 2:09 PM FINDINGS: Tubes, catheters and devices: A surgical drain is seen with tip projecting posteriorly at the proximal calf. Bones/joints: There is a right total knee arthroplasty since the prior study. There is minimal hyper extension at the knee which is likely positional. No periprosthetic fracture or periprosthetic lucency. No evidence of hardware complication. Soft tissues: Anterior postoperative soft tissue air including within the knee joint. Presumed open surgical incision anterior to the patella. IMPRESSION: 1. Right total knee arthroplasty without evidence of hardware complication. 2. Anterior presumed open surgical incision anterior to the patella. Thank you for allowing us to participate in the care of your patient. Dictated and Authenticated by: Florencia Martinez MD 09/07/2020 2:20 PM Central Time ([place] & [place]) LIZBETH
[2020-09-07] MEDS ORDERED: oxyCODONE 5 MG Tab PO PRN (15:45)
[2020-09-07 15:48] VITALS: BP 122/42; PULSE 78
--- NOTE | 2020-09-21 14:19 | PCM.OPNOTE ---
- General Post-Op/Procedure Note Date of Surgery/Procedure: 09/07/20 Operative Procedure(s): right total knee arthroplasty Pre Op Diagnosis: right knee osteoarthrosis Post-Op Diagnosis: Same Anesthesia Technique: Local, MAC, Spinal Primary Surgeon: Handy Aguilar Anesthesia Provider: Emilia Davis Warehouse Shipping Supervisor: Rosey Hugo Warehouse Shipping Supervisor: Rosa Hsu EBFly in mLs: 300 Complications: None Condition: Good Free Text/Narrative:: / 11mm 32x10
--- NOTE | 2020-09-21 14:57 | OR ---
DATE OF OPERATION: 09/07/2020 SURGEON: Handy Aguilar MD OPERATION PERFORMED: Right total knee arthroplasty. PREOPERATIVE DIAGNOSIS: Right knee osteoarthrosis. POSTOPERATIVE DIAGNOSIS: Right knee osteoarthrosis. ANESTHESIA: Local MAC with spinal. ANESTHESIA PROVIDER: Marie Weathers. ASSISTANTS: Rosey Hugo PA-C and Rosa Hus LPN. ESTIMATED BLOOD LOSS: 300 mL. COMPLICATIONS: None. CONDITION: Stable. IMPLANTS: 1. Marc size 4 press-fit CR femur. 2. [place] size 4 press-fit tibial base plate. 3. [place] size 4, 11 mm CS X3 polyethylene. 4. [place] size 32 x 10 mm press-fit asymmetric patella. DESCRIPTION OF PROCEDURE: The patient was identified in the preop holding area. Proper site was marked and identified by the surgeon. The patient was taken back to the operating theater. After adequate anesthesia, the patient's right lower extremity had a nonsterile tourniquet applied and it was sterilely prepped and draped in the usual sterile fashion. OR time-out was performed. The patient received 2 g IV Ancef. At this time, the right lower extremity was exsanguinated. Tourniquet was insufflated to 300 mmHg. Standard medial parapatellar incision was made. Medial parapatellar arthrotomy was created. Deep fibers of the MCL were raised and anterior fat pad was resected. At this time, attention was turned to the patella. Patella measured 24, it was resected to a 14 for 32 x 10 mm patella. Drill holes were then drilled and found to be in adequate position. The drill was then drilled in the distal femur and the intramedullary distal femoral cutting guide was then placed. 8 mm was resected off the distal femur and was found to be an adequate resection. Sizing guide was placed. It was found to be a size 4 press-fit CR femur that was shown on the implant record at the beginning of this dictation. The drill holes were drilled for the epicondylar axis using [place]ites[place] line and epicondyles as reference. At this time, the 4-in- 1 cutting block was placed. An anterior posterior and anterior and posterior chamfer cuts were then completed. Attention was turned to the tibia. The posterior medial lateral retractors were placed. The extramedullary tibial guide was placed. It was placed in the old footprint of the ACL. It was aligned with the center of the ankle and 0 degrees of slope, 9 mm was then resected off the unaffected side. There was found to be an acceptable reduction. At this time, posterior osteophytes were removed along with medial and lateral meniscus. A trial implant was placed with a correct sized tibia that was mentioned at the beginning of the dictation. A Marc size 4, 11 mm CS X3 polyethylene insert was then placed. The patient's knee was brought through range of motion. The patella was tracking centrally and was stable to varus and valgus stress. Alignment was found to be roughly at 0 degrees. The tibia was stamped and drilled in proper rotation. The universal tibial base plate was impacted in place. Next, the [place] size 4 press-fit CR femur impacted into place and the Marc size 4, 11 mm CS X3 polyethylene insert was placed. The patient's knee was brought into full extension. The patella was then press-fit in place at this time. Tourniquet was deflated. One liter Irricept solution was irrigated through the knee along with 1 L of pulse lavage irrigation with Ancef. Periarticular injection was then completed. The patient's knee was brought through a range of motion. Knee was found to be stable to varus valgus stress, the patella was tracking centrally with full range of motion. At this time, a #2 barbed suture was used for closure of the medial parapatellar arthrotomy. Topical tranexamic acid was placed. 2-0 Vicryl was used subcutaneously, Prineo was used for the skin. The patient tolerated the procedure well and was sent to the PACU in stable condition. MMODAL /[id number] LIZBETH
== END 2020-09-07 16:30 | disposition home or self-care (01) ==
LOC: JD.SDS 09:30
PROVIDERS: ATTEND Orthopaedic Surgery
DX: M17.11 Unilateral primary osteoarthritis, right knee (principal); E55.9 Vitamin D deficiency, unspecified; E66.9 Obesity, unspecified; E78.5 Hyperlipidemia, unspecified; Z79.899 Other long term (current) drug therapy; Z88.0 Allergy status to penicillin; Z91.040 Latex allergy status; Z88.8 Allergy status to other drugs, medicaments and biological substances; Z87.891 Personal history of nicotine dependence; Z68.38 Body mass index [BMI] 38.0-38.9, adult
CPT/HCPCS: 27447; 73560; 87641; 94640; 97110; 97116; 97161; 97165; A9270; C1776; J0171; J0690; J0697; J1100; J1885; J2250; J2270; J2405; J2704; J2795; J3370; J3490; J7120; 01402; 64450

== ENCOUNTER 2021-09-01 11:26 | Emergency (ER) | payer MEDICARE, OTHER ==
[2021-09-01 12:20] VITALS: BP 134/60; PULSE 53
[2021-09-01] MEDS ORDERED: HYDROmorphone 0.5 MG/0.5 ML Syringe IM ONE (12:26)
--- NOTE | 2021-09-01 13:07 | EDM.PDOC ---
ED HPI GENERAL MEDICAL PROBLEM - General Chief Complaint: Upper Extremity Injury/Pain Stated Complaint: SHOULDER INJURY Time Seen by Provider: 09/01/21 12:17 Source of Information: Reports: Patient History Limitations: Reports: No Limitations - History of Present Illness INITIAL COMMENTS - FREE TEXT/NARRATIVE: 71-year old female presents the emergency department today with complaints of a left shoulder injury. Patient states that at about 830 this morning she was walking and carrying a bowl of soup when she tripped on a rug and fell directly onto her left shoulder. She states she had immediately had pain and since has been unable to move her arm or shoulder area without severe discomfort. She denies any previous injury to the left shoulder or arm. She states she does have numbness and tingling to her hands and fingers however she says this is chronic for her and is nothing new. She states she has not taken anything for the discomfort. Left Shoulder Pain Score (Numeric/FACES): 9 - Related Data Allergies Allergy/AdvReac Type Severity Reaction Status Date / Time bacitracin Allergy Hives Verified 09/01/21 12:21 [From Neosporin ([id number])] gold Au 198 Allergy Other Verified 09/01/21 12:21 neomycin Allergy Hives Verified 09/01/21 12:21 [From Neosporin ([id number])] nickel Allergy Rash Verified 09/01/21 12:21 Penicillins Allergy Rash Verified 09/01/21 12:21 polymyxin B Allergy Hives Verified 09/01/21 12:21 [From Neosporin ([id number])] rubber Allergy Other Uncoded 09/01/21 12:21 Home Meds: Home Meds Escitalopram [Lexapro] 20 mg PO DAILY 02/27/17 [History] FA/Lycopene/Lut/MV,Ca,Iron,Min [Centrum] 1 tab PO DAILY 02/27/17 [History] Metoprolol Succinate 25 mg PO DAILY 02/27/17 [History] Cyanocobalamin (Vitamin B12) [Vitamin B12] 1,000 mcg PO DAILY 01/20/18 [History] Cholecalciferol (Vitamin D3) [Vitamin D3] 5,000 unit PO DAILY 09/04/20 [History] atorvaSTATin Calcium [Lipitor] 20 mg PO DAILY 09/04/20 [History] valACYclovir [Valtrex] 1,000 mg PO BID PRN 09/04/20 [History] Aspirin [Aspirin EC] 325 mg PO BID #84 tab 09/07/20 [Rx] Cyclobenzaprine [Flexeril] 5 mg PO BID PRN #10 tab 09/07/20 [Rx] oxyCODONE 5 - 10 mg PO Q4H PRN #40 tab 09/07/20 [Rx] Past Medical History HEENT History: Reports: Impaired Vision Other HEENT History: Dentures Cardiovascular History: Reports: High Cholesterol, Hypertension Other Cardiovascular History: Patient states she has episodes of "heart racing with skipping beats" -- Last episode unknown. Respiratory History: Reports: Sleep Apnea Gastrointestinal History: Reports: Other (See Below) Other Gastrointestinal History: increased gas Genitourinary History: Reports: UTI, Recurrent [employer] History: Reports: , Other (See Below) Other [employer] History: tubal, D&C, hysterectomy Musculoskeletal History: Reports: Arthritis, Other (See Below) Other Musculoskeletal History: left hand numbness, left foot numbness Psychiatric History: Reports: Anxiety, Depression Endocrine/Metabolic History: Reports: Obesity/BMI 30+, Vitamin D Deficiency Other Endocrine/Metabolic History: not on synthroid anymore Hematologic History: Reports: Other (See Below) Other Hematologic History: is on baby aspirin Dermatologic History: Reports: Eczema - Infectious Disease History Infectious Disease History: Reports: Chicken Pox, Measles - Past Surgical History Head Surgeries/Procedures: Reports: None HEENT Surgical History: Reports: Tonsillectomy Cardiovascular Surgical History: Reports: None Respiratory Surgical History: Reports: None GI Surgical History: Reports: Colonoscopy Female Surgical History: Reports: None Endocrine Surgical History: Reports: None Neurological Surgical History: Reports: None Musculoskeletal Surgical History: Reports: Knee Replacement Other Musculoskeletal Surgeries/Procedures:: bunion excision bilateral feet, right hand surgery Dermatological Surgical History: Reports: None Social & Family History - Family History Family Medical History: No Pertinent Family History - Tobacco Use Tobacco Use Status *Q: Former Tobacco User Years of Tobacco use: 10 Packs/Tins Daily: 0.5 Used Tobacco, but Quit: Yes Month/Year Tobacco Last Used: 10/1991 Second Hand Smoke Exposure: No - Caffeine Use Caffeine Use: Reports: Coffee - Recreational Drug Use Recreational Drug Use: No Review of Systems - Review of Systems Review Of Systems: Comprehensive ROS is negative, except as noted in HPI. ED EXAM, GENERAL - Physical Exam Exam: See Below Exam Limited By: No Limitations General Appearance: Alert, WD/WN, Mild Distress Ears: Normal External Exam, Hearing Grossly Normal Nose: Normal Inspection Throat/Mouth: Normal Inspection, Normal Lips, Normal Voice, No Airway Compromise Head: Atraumatic Neck: Normal Inspection, Supple Respiratory/Chest: No Respiratory Distress, No Accessory Muscle Use Cardiovascular: Normal Peripheral Pulses, Regular Rate, Rhythm, No Edema Peripheral Pulses: 2+: Radial (L), Radial (R) GI/Abdominal: No Distention (Female) Exam: Deferred Rectal (Female) Exam: Deferred Back Exam: Normal Inspection Extremities: Normal Inspection, Normal Capillary Refill, Limited Range of Motion (Left shoulder and arm). No: Non-Tender (Mid humeral area anteriorly) Neurological: Alert, Oriented, Normal Cognition Psychiatric: Normal Affect, Normal Mood Skin Exam: Warm, Dry, Intact, Normal Color, No Rash Lymphatic: No Adenopathy Course - Vital Signs Text/Narrative:: As stated above, patient presents with an injury to her left shoulder area. Physical exam is unable to complete due to the patient being unable to move her left arm laterally or anteriorly without severe discomfort. I do not appreciate any deformity noted with palpation. Patient does have discomfort with palpation to the mid humeral shaft area. I do not appreciate any bruising or swelling to the left shoulder or humerus area. We will get an x-ray of the left shoulder and humerus. We will also medicate the patient with Dilaudid half milligram IM for discomfort. Last Recorded V/S: Last Vital Signs Temp 97.0 F 09/01/21 12:17 Pulse 53 L 09/01/21 12:17 Resp 16 09/01/21 12:17 BP 134/60 09/01/21 12:17 Pulse Ox 96 09/01/21 12:17 - Orders/Labs/Meds Orders: Active Orders 24 hr Category Date Time Status DME for Discharge [COMM] Stat Oth 09/01/21 14:30 Ordered Meds: Medications Discontinued Medications Generic Name Dose Route Start Last Admin Trade Name Freq PRN Reason Stop Dose Admin Hydromorphone HCl 0.5 mg 09/01/21 12:26 Hydromorphone 0.5 Mg/0.5 Ml Syringe IM 09/01/21 12:27 ONETIME ONE - Re-Assessments/Exams Free Text/Narrative Re-Assessment/Exam: 09/01/21 14:00 Radiologist impression 2 view of the left humerus: 1. Nothing acute is seen on 2 view left humerus study. 09/01/21 14:20 Radiologist impression 3 view of the left shoulder: 1. Mild calcified tendinitis. 2. Mild degenerative change within the glenohumeral joint. 3. Degenerative change within the thoracic spine. 09/01/21 14:33 Patient will be discharged to home. She will be placed in a sling to prevent further injury. She will need to follow-up with Dr. Aguilar. Departure - Departure Time of Disposition: 14:29 Disposition: Home, Self-Care 01 Condition: Good Clinical Impression: Injury of left shoulder and upper arm Qualifiers: Encounter type: initial encounter Qualified Code(s): S49.92XA - Unspecified injury of left shoulder and upper arm, initial encounter - Discharge Information Instructions: How to use a Sling, [id number], Pain Medicine Instructions, [id number] Referrals: Narcisa Malin NP [Primary Care Provider] - Forms: ED Department Discharge Additional Instructions: You were seen in the emergency department today after injuring your left shoulder. X-rays were completed which were completely unremarkable. There are no broken bones noted in your shoulder or arm. You did receive pain medication while in the emergency department this did seem to help. Nursing staff has placed you into a sling. I would wear this for about the next week or so for co mfort and support. Recommend taking Tylenol 650 mg alternating with ibuprofen 600 mg every 4 hours for the next 48 hours as you will likely be having more pain and discomfort. After that time you will just take it as needed. You will need to follow-up with Dr. Aguilar, orthopedic surgeon at [facility]. You will need to call and schedule an appointment. The phone number is [phone]. Sepsis Event Note (ED) - Evaluation Sepsis Screening Result: No Definite Risk - Focused Exam Vital Signs: Vital Signs Temp Pulse Resp BP Pulse Ox 09/01/21 12:17 97.0 F 53 L 16 134/60 96 - My Orders Last 24 Hours: My Active Orders 09/01/21 14:30 DME for Discharge [COMM] Stat - Assessment/Plan Last 24 Hours: My Active Orders 09/01/21 14:30 DME for Discharge [COMM] Stat
--- NOTE | 2021-09-01 13:24 | CR ---
Left humerus: 2 views of the left humerus were obtained. Comparison: No prior humerus study is available. No discrete fracture or other bony abnormality is appreciated. Impression: 1. Nothing acute is seen on 2 view left humerus study. Diagnostic code #1
--- NOTE | 2021-09-01 14:03 | CR ---
Left shoulder: 3 views left shoulder were obtained. Comparison: No previous left shoulder study is available. Slight calcification is seen within the soft tissues above the left humeral head compatible with mild calcific tendinitis. Minimal calcifications are seen off the more lateral humeral head which are felt to be dystrophic. Acromioclavicular joint is normal. Minimal degenerative spurring is within the glenohumeral joint. Mild degenerative change is also partially seen within the thoracic spine. Impression: 1. Mild calcific tendinitis. 2. Mild degenerative change within the glenohumeral joint. 3. Degenerative change within the thoracic spine. Diagnostic code #2
== END 2021-09-01 15:30 | disposition home or self-care (01) ==
LOC: JD.ED 11:26
DX: S49.92XA Unspecified injury of left shoulder and upper arm, initial encounter (principal); I10 Essential (primary) hypertension; E78.00 Pure hypercholesterolemia, unspecified; E66.9 Obesity, unspecified; Z68.37 Body mass index [BMI] 37.0-37.9, adult; Z88.1 Allergy status to other antibiotic agents; Z91.048 Other nonmedicinal substance allergy status; Z88.0 Allergy status to penicillin; Z79.899 Other long term (current) drug therapy; Z79.82 Long term (current) use of aspirin; Z87.891 Personal history of nicotine dependence; W01.0XXA Fall on same level from slipping, tripping and stumbling without subsequent striking against object, initial encounter; Y93.01 Activity, walking, marching and hiking
CPT/HCPCS: 73030; 73060; 96372; 99283; J1170

== ENCOUNTER 2024-07-24 19:22 | Emergency (ER) | payer MEDICARE, OTHER ==
[2024-07-24 19:30] VITALS: BP 175/107; PULSE 85
== END 2024-07-24 20:56 | disposition home or self-care (01) ==
LOC: JD.ED 19:22
DX: H11.31 Conjunctival hemorrhage, right eye (principal); I10 Essential (primary) hypertension; E78.00 Pure hypercholesterolemia, unspecified; Z88.0 Allergy status to penicillin; Z91.048 Other nonmedicinal substance allergy status; Z88.8 Allergy status to other drugs, medicaments and biological substances; Z79.82 Long term (current) use of aspirin; Z79.899 Other long term (current) drug therapy; E66.9 Obesity, unspecified; Z68.36 Body mass index [BMI] 36.0-36.9, adult; Z90.710 Acquired absence of both cervix and uterus
CPT/HCPCS: 99283